=== PATIENT | male | born 1955 | race Caucasian/White ===

== ENCOUNTER 2018-12-07 11:00 | Emergency (ER) | payer OTHER ==
[~2018-12-07] VITALS: Ht 170.2 cm; Wt 69.4 kg
[2018-12-07 12:03] LABS: HEMATOCRIT 42.3 % (42.0-52.0); HEMOGLOBIN 14.5 gm/dL (14.0-18.0); MCH 31.9 pg (26.0-34.0); MCHC 34.2 g/dL (28.0-37.0); MCV 93.3 fL (80.0-100.0); MPV 7.7 fl. (7.2-11.1); RBC 4.54 mil/uL (4.50-6.00); RDW-CV 14.5 % (10.5-14.5); URINE BILIRUBIN NEGATIVE (Negative); URINE BLOOD NEGATIVE (Negative); URINE CLARITY CLEAR; URINE COLOR STRAW; URINE GLUCOSE-RANDOM NEGATIVE (Negative); URINE KETONES NEGATIVE (Negative); URINE LEUKOCYTES NEGATIVE (Negative); URINE NITRITE NEGATIVE (Negative); URINE PROTEIN NEGATIVE (Negative); URINE SPECIFIC GRAVITY <= 1.005 (1.005-1.030); URINE UROBILINOGEN 0.2 E.U./dl (0.2-1.0); WBC 7.6 thou/uL (4.0-11.0)
[2018-12-07 12:13] LABS: ANION GAP 8 mmol/L (7-16); BUN 13 mg/dL (7-18); CALCIUM 9.3 mg/dL (8.5-10.1); CHLORIDE 103 mmol/L (98-107); CO2 27 mmol/L (21-32); CREATININE 0.9 mg/dL (0.6-1.3); GLUCOSE 95 mg/dL (70-99); POTASSIUM 3.7 mmol/L (3.5-5.1); SODIUM 138 mmol/L (136-145)
[2018-12-07 12:22] LABS: ALBUMIN 3.3 g/dL (3.4-5.0); ALKALINE PHOSPHATASE 85 U/L (46-116); LIPASE 227 U/L (73-393); SGOT 24 U/L (15-37); SGPT 39 U/L (30-65); TOTAL BILIRUBIN 0.3 mg/dL (<0.1-1.0); TOTAL PROTEIN 7.1 g/dL (6.4-8.2); TROPONIN-I LEVEL <0.06 ng/mL (<0.06)
[2018-12-07] MEDS ORDERED: IBUPROFEN 800800 M1 PO (13:17)
[2018-12-07] MEDS ORDERED: NORCO 5-325 TA1 EAC1 PO (13:17)
[2018-12-07 13:32] VITALS: BP 159/90
--- NOTE | 2018-12-09 12:20 | EKG ---
[place] [address] ELECTROCARDIOGRAM REPORT Name: TRAVIS FRAZIER [id number] Admission: 12/07/18 Attend Phys: Discharge: 12/07/18 Date of : 59 Report #: [id number] THIS REPORT FOR: //name// [facility] ED Test Date: 2018-12-07 Test Time: 11:43:21 Pat Name: TRAVIS FRAZIER Department: Room: Gender: Career Services Representative: : 1955 Requested By: Michael Bowling Order Number: [id number] MD: Travis Smiley Measurements Intervals [place] Rate: 80 P: 86 [place]: 126 QRS: 56 QRSD: 104 T: 70 QT: 396 QTc: 457 Interpretive Statements Sinus rhythm No previous ECG available for comparison Electronically Signed On 12-09-2018 12:19:54 CDT by Travis Smiley [email or web address] <ELECTRONICALLY SIGNED> By: Travis Smiley MD, [facility] 12/09/18 1219 1143 1143 Travis Smiley MD, FACC /EPI
== END 2018-12-07 13:34 | disposition home or self-care (01) ==
LOC: EDBD 11:00 → M.ERS 11:00
PROVIDERS: Emergency Medicine Emergency Medical Services
DX: S22.42XA Multiple fractures of ribs, left side, initial encounter for closed fracture (principal); W10.9XXA Fall (on) (from) unspecified stairs and steps, initial encounter; Y93.89 Activity, other specified; Y92.89 Other specified places as the place of occurrence of the external cause; Y99.8 Other external cause status

== ENCOUNTER 2018-12-29 13:07 | Emergency (ER) | payer OTHER ==
[~2018-12-29] VITALS: Ht 170.2 cm; Wt 70.3 kg
[~2018-12-29 13:07] MED LIST: IBUPROFEN 800800 M1 PO; NORCO 5-325 TA1 EAC1 PO
[2018-12-29] MEDS ORDERED: AMOXICILLIN 50500 M1 PO (13:44)
[2018-12-29 14:17] VITALS: BP 159/97
== END 2018-12-29 14:19 | disposition home or self-care (01) ==
LOC: M.ERS 13:07
DX: K08.89 Other specified disorders of teeth and supporting structures (principal); R22.0 Localized swelling, mass and lump, head

== ENCOUNTER 2020-06-24 13:57 | Emergency (ER) | payer OTHER ==
[~2020-06-24] VITALS: Ht 170.2 cm; Wt 72.6 kg
[~2020-06-24 13:57] MED LIST changes: +AMOXICILLIN 50500 M1 PO
[2020-06-24 14:32] LABS: ABSOLUTE BASOPHILS 0.1 thou/uL (0.0-0.2); ABSOLUTE EOSINOPHILS 0.1 thou/uL (0.0-0.7); ABSOLUTE LYMPHOCYTES 1.6 thou/uL (0.8-5.3); ABSOLUTE MONOCYTES 0.6 thou/uL (0.0-1.2); ABSOLUTE NEUTROPHILS 6.5 thou/uL (1.6-8.1); BASOPHILS 0.8 %; EOSINOPHILS 0.9 %; HEMATOCRIT 48.1 % (42.0-52.0); HEMOGLOBIN 16.2 gm/dL (14.0-18.0); LYMPHOCYTES 17.8 %; MCH 32.6 pg (26.0-34.0); MCHC 33.7 g/dL (28.0-37.0); MCV 96.8 fL (80.0-100.0); MPV 7.5 fl. (7.2-11.1); NUCLEATED RBCS 0 /100WBC; PLATELET COUNT* 258 thou/uL (150-400); POLYS 73.5 %; RBC 4.97 mil/uL (4.50-6.00); RDW-CV 15.3 % (10.5-14.5); WBC 8.8 thou/uL (4.0-11.0)
[2020-06-24 14:41] LABS: CALCIUM 8.9 mg/dL (8.5-10.1); CREATININE 1.2 mg/dL (0.6-1.3); POTASSIUM 3.8 mmol/L (3.5-5.1)
[2020-06-24 14:44] LABS: PROTIME 10.2 Seconds (9.20-11.50)
[2020-06-24 14:52] LABS: TOTAL PROTEIN 7.6 g/dL (6.4-8.2)
[2020-06-24 15:05] LABS: URINE BILIRUBIN NEGATIVE (Negative); URINE BLOOD NEGATIVE (Negative); URINE CLARITY CLEAR; URINE COLOR YELLOW; URINE GLUCOSE-RANDOM 1+ (Negative); URINE KETONES 2+ (Negative); URINE LEUKOCYTES-REFLEX NEGATIVE (Negative); URINE NITRITE-REFLEX NEGATIVE (Negative); URINE PROTEIN TRACE (Negative); URINE SPECIFIC GRAVITY >= 1.030 (1.005-1.030); URINE UROBILINOGEN 0.2 E.U./dl (0.2-1.0)
[2020-06-24] MEDS ORDERED: ZOFRAN ODT4 MG SUBLING (15:28)
[2020-06-24 15:30] VITALS: BP 140/78
--- NOTE | 2020-06-24 16:04 | EKG ---
[place] [address] ELECTROCARDIOGRAM REPORT Name: KARINTRAVIS TURCIOSMOND Room: [facility]#: [id number] Admission: 06/24/20 Attend Phys: Discharge: 06/24/20 Date of : 59 Date of Service: 06/24/20 1407 Report #: [id number] THIS REPORT FOR: //name// [facility] ED Test Date: 2020-06-24 Test Time: 14:07:11 Pat Name: TRAVIS FRAZIER Department: Room: Gender: Technology Sales Consultant: STUDENT : 1955 Requested By: Clay Luis Order Number: [id number] MD: Vito Overton Measurements Intervals [place] Rate: 65 P: 68 [place]: 145 QRS: 53 QRSD: 113 T: 82 QT: 439 QTc: 457 Interpretive Statements Sinus rhythm Probable left atrial enlargement Compared to ECG 12/07/2018 11:43:21 No significant changes Electronically Signed On 06-24-2020 16:04:38 GLASS TECHNOLOGIST by Vito Overton [email or web address] <ELECTRONICALLY SIGNED> By: Vito Overton MD, [facility] 06/24/20 1604 1407 1407 Vito Overton MD, [facility] /EPI
== END 2020-06-24 15:30 | disposition home or self-care (01) ==
LOC: M.ERS 13:57
PROVIDERS: Family Medicine
DX: F10.920 Alcohol use, unspecified with intoxication, uncomplicated (principal); Z20.828 Contact with and (suspected) exposure to other viral communicable diseases; R11.2 Nausea with vomiting, unspecified; R53.1 Weakness; Y90.9 Presence of alcohol in blood, level not specified